=== PATIENT | female | born 1965 | race Caucasian/White ===

== ENCOUNTER 2019-01-25 11:59 | Day surgery (SDC) | payer BC ==
[2019-01-24 14:00] VITALS: BMI 32.6
[2019-01-25] MEDS ORDERED: MIDAZOLAM HCL 2 MG/2 ML SINGLE DOSE VIAL ONE ×2 (13:37→14:04)
[2019-01-25] MEDS ORDERED: ceFAZolin SODIUM 1 GM VIAL ONE ×2 (13:37)
[2019-01-25] MEDS ORDERED: PROPOFOL 20 ML ONE (13:40)
[2019-01-25] MEDS ORDERED: ceFAZolin SODIUM 1 GM VIAL IVPB ONE (13:40)
[2019-01-25] MEDS ORDERED: LIDOCAINE HCL 1%, 10 MG/ML (50 mL VIAL) IJ ONE (13:51)
[2019-01-25 17:56] VITALS: TEMP 97.8
[2019-01-25 18:04] VITALS: BP 155/80; PULSE 90
--- NOTE | 2019-01-30 19:45 | PATH ---
Surgical Pathology Report Patient Name: ULI LIM [facility]. Rec. #: [id number] /Age/Gender: 1965 (Age: 53) / F Account: [id number] Location: [facility] SURGICAL Taken: 01/25/2019 Received: 01/28/2019 Reported: 01/30/2019 Physicians: Lex Garner DPM Specimen(s) Received LEFT FOOT BONE Clinical History Diabetic foot ulcer with spur left foot Final Diagnosis BONE, FOOT, LEFT, EXOSTECTOMY: BONE WITH REMODELING AND REACTIVE CHANGES Electronically Signed Rosanna Medrano M.D. Gross Description Received in formalin labeled "left foot bone," is a 1.7 x 1.5 x 0.2 cm aggregate of 2 portions of mayer bone. Air Breaker Operator sections are submitted in one cassette, following decalcification. DL/01/28/2019 saudi/01/28/2019
--- NOTE | 2019-04-10 17:41 | OP ---
DATE OF OPERATION: 01/25/2019 PREOPERATIVE DIAGNOSIS: Charcot foot deformity left foot with diabetic ulcer and heterotopic bone formation. POSTOPERATIVE DIAGNOSIS: Charcot foot deformity left foot with diabetic ulcer and heterotopic bone formation. SURGEON: Lex Garner DPM ANESTHESIA: MAC and sedation. HEMOSTASIS: Ankle tourniquet inflated to 250 mmHg. PROCEDURE: Patient was prepped and draped in the usual manner and sent to the OR in stable condition. Upon achieving complete anesthesia, a local infiltrate and block was administered in combination with MAC anesthesia. Upon achieving complete anesthesia and having the foot prepped appropriately, the longitudinal incision was made along the lateral aspect of the left foot at the area of the cuboid bone. Both sharp and blunt dissection was utilized to expose the plantar aspect of the cuboid. Utilizing both microsagittal saw and sharp osteotomes, the plantar aspect of the left cuboid was then removed. This was then smoothed with a rasp, and then flushed out with copious amounts of sterile water. Postoperative injection of 10 mL of Marcaine plain 0.25% followed by skin closure with both 3-0 Vicryl and 3-0 nylon suture. At this time, the was deflated, and there was an instantaneous hyperemic response noted to return to all digits of the operative foot. Application of dry, sterile compressive dressing, and CAM walker was applied. Patient was stable throughout the entire procedure and sent to the PACU in stable condition. LEX GARNER DPM [id number]
== END 2019-01-25 16:45 | disposition home or self-care (01) ==
LOC: JASU-SURG 11:59
PROVIDERS: ATTEND Podiatrist Foot Surgery
PROC: 0QBM0ZZ Excision of Left Tarsal, Open Approach (ICD-10-PCS; principal; 2019-01-25 13:00)
DX: E11.621 Type 2 diabetes mellitus with foot ulcer (principal); E11.610 Type 2 diabetes mellitus with diabetic neuropathic arthropathy; L97.529 Non-pressure chronic ulcer of other part of left foot with unspecified severity; M61.9 Calcification and ossification of muscle, unspecified; I10 Essential (primary) hypertension; E78.5 Hyperlipidemia, unspecified; E03.9 Hypothyroidism, unspecified
CPT/HCPCS: 82962; 88304-TC; 88311-TC